=== PATIENT | female | born 1990 | race Caucasian/White ===

== ENCOUNTER → 2021-07-27 16:09 | Outpatient (CLI) | payer MEDICAID, SELFPAY ==
[2021-07-27 18:11] LABS: Absolute Lymphocyte Count 3.31 X10^3/uL (0.83-4.51); Absolute Neutrophil Count 7.3 X10^3/uL (2.0-7.7); Basophil# 0.08 X10^3/uL; Basophil% 0.7 % (0-1); Eosinophil# 0.11 X10^3/uL; Hemoglobin 13.7 g/dL (12.0-15.0); Lymphocyte # 3.31 X10^3/ul (0.83-4.51); Mean Corp Hgb Conc 33.4 g/dL (32-36); Mean Corpuscular Volume 89.7 fL (81-99); Mean Platelet Vol. 10.4 fl (6.2-12.0); Monocyte# 0.56 X10^3/uL; Monocyte% 4.9 % (0-10); NRBC Flagged by Analyzer 0 % (0-5); Platelet Count 328 K/mm3 (150-450); RBC Distribution Width CV 13.4 % (11.6-14.6); RBC Distribution Width SD 44.2 fl (35.1-43.9); Red Blood Count 4.57 M/mm3 (4.2-5.4); White Blood Count 11.4 K/mm3 (4.4-11.0)
[2021-07-27 18:53] LABS: ALB/GLOB Ratio 0.8 RATIO (0.9-2.4); AST(SGOT) 9 U/L (15-37); Alanine Aminotransfer ALT/SGPT 23 U/L (13-56); Albumin, Serum 3.4 g/dL (3.2-5.0); Alkaline Phosphatase 68 U/L (45-117); Anion Gap 9 (5-15); BUN 7 mg/dL (7-18); BUN/Creat Ratio 10.1 RATIO (10-20); Calcium,Total 8.7 mg/dL (8.5-10.1); Chloride 103 mmol/L (98-107); Cholesterol 212 mg/dL (200); EST Glomerular Filtration Rate 104 mL/min (>60); Est Glom Filt Rate - Afr Amer 126 mL/min (>60); Globulin 4.1 g/dL (2.2-4.2); Glucose 86 mg/dL (74-106); High Density Lipoprotein 57 mg/dL; Magnesium 2.2 mg/dL (1.6-2.6); Potassium 3.7 mmol/L (3.5-5.1); Protein, Total 7.5 g/dL (6.4-8.2); Sodium Level 137 mmol/L (136-145); Thyroid Stim Hormone (TSH) 1.66 uIU/mL (0.358-3.74); Triglycerides 152 mg/dL; Very Low Density Lipoprotein 30 mg/dL (5-40)
== END ==
PROVIDERS: PCP Family Medicine; Referring Provider Family Medicine; Visit Provider Family Medicine
DX: E66.9 Obesity, unspecified (principal); K52.9 Noninfective gastroenteritis and colitis, unspecified; Z68.35 Body mass index [BMI] 35.0-35.9, adult
CPT/HCPCS: 36415; 80053; 80061; 83735; 84443; 85025

== ENCOUNTER → 2021-10-26 | Outpatient (CLI) | payer MEDICAID, SELFPAY | END | disposition home or self-care (01) | LOC: LABSPEC 17:11 | PROVIDERS: PCP Family Medicine; Visit Provider Nurse Practitioner Family | DX: U07.1 COVID-19 (principal) | CPT/HCPCS: 87633; 87635; U0005; U0003 ==

== ENCOUNTER 2024-02-15 11:00 | Emergency (ER) | payer SELFPAY ==
[2024-02-15 11:02] VITALS: BP 141/101; PULSE 91; RESP 18; TEMP 35.6; O2SAT 95; BMI 34.9
--- NOTE | 2024-02-15 11:46 | EX.ED.DYSGE1 ---
HPI History of Present Illness Chief Complaint: General Illness Informant: patient Onset/Context/Timing Onset: Days Context: Gradual Onset Timing: Continuous Current Severity: Mild Maximum Severity: Mild Narrative Narrative: 33-year-old female no seen past medical history. On Sunday started with nausea vomiting diarrhea. The vomiting has stopped. And the diarrhea is improved. Patient is also had a cough with some intermittent wheezing. Subjective fever. She is also concerned because she is recently transitioning her insurance and it has not started yet since she wants to keep cost at a minimum if possible. Prior similar symptoms: Yes Recent Illness/Hospitalization: No PFSH PFSH Medical History no medical history no medical history Home Medications dicyclomine 10 mg capsule 20 mg (2 x 10 mg) PO TIDAC ##20 09/01/15 [Rx Last Taken Unknown] etonogestrel 0.12 mg-ethinyl estradiol 0.015 mg/24 hr vaginal ring (NuvaRing) 1 ea VG 09/01/15 [History Last Taken Unknown] ondansetron 4 mg disintegrating tablet 4 mg PO Q8H PRN PRN Nausea 09/01/15 [History Last Taken Unknown] prednisone 20 mg tablet 40 mg (2 x 20 mg) PO DAILY 7 days #14 tabs 02/15/24 [Rx Last Taken Unknown] Allergy/AdvReac Type Severity Reaction Status Date / Time Iodinated Contrast Media AdvReac Vomiting Verified 02/15/24 11:01 [Iodinated Contrast Media - IV Dye] Social History Smoking Status: Never smoker ROS ROS ED ROS Narrative Cough. Subjective fever and chills. Nausea vomiting diarrhea. Review of Systems ROS Unobtainable: Denies due to encephalopathy Constitutional Constitutional ED: Reports chills, fever(s) and subjective Eyes Eyes: Denies blurry vision ENT ENT ED: Reports ear pain and rhinorrhea; Denies sore throat Cardiovascular Cardiovascular: Denies chest pain or palpitations Respiratory/Chest Respiratory/Chest: Reports cough Gastrointestinal Gastrointestinal: Reports diarrhea, nausea and vomiting; Denies abdominal pain, constipation or melena Genitourinary Genitourinary ED: Denies dysuria or hematuria Musculoskeletal Musculoskeletal: Denies arthralgias or back pain Integumentary Denies abscess or Abrasions Neurologic Neurologic: Denies headache(s) Psychiatric Psychiatric: Denies anxiety Endocrine Endocrinology: Denies cold intolerance Hematologic/Lymphatic Hematologic/Lymphatic: Reports none Allergic/Immunologic Allergic/Immunologic ED: Denies mouth swelling, tongue swelling or urticaria EXAM Physical Exam Narrative Exam Narrative: Well-appearing 33-year-old female. Vital signs stable afebrile. Pulse ox 95% on room air no signs hypoxia. She does not look septic or toxic. She is no distress. She is well-hydrated. HEENT exam pupils round and react light. Mytrex membranes. Posterior pharynx normal. TMs normal. Neck nontender. No meningismus. No lymphadenopathy. Lungs clear to auscultation bilaterally. Currently is not wheezing. Heart regular rhythm no murmur. Abdomen soft nontender. Moving all 4 extremities. Nontender no edema. Neurologically she is awake and alert no focal motor deficits. Const Vital Signs: 02/15/24 11:02 Temperature 96.1 F L Temperature Source Temporal Pulse Rate 91 Respiratory Rate 18 Blood Pressure 141/101 H Blood Pressure Mean 114 Pulse Ox 95 Oxygen Delivery Method Room Air Positive well nourished and well developed; Negative for cachectic, contractures or unkempt General Appearance ED: well developed and NAD; Negative for unkempt, cachectic, contractures, cyanotic, diaphoretic or pallor Nutritional Appearance: Negative for cachectic HEENT Reports moist mucous membranes; Denies dry mucous membranes Negative for trauma or tenderness Mouth ED: No dry mucous membranes Mouth: No dry mucous membranes Eyes PERRL and EOMs intact bilaterally General Eye ED: Negative for pale conjunctiva or scleral icterus Neck no lymphadenopathy, supple and no JVD General: Negative for tenderness Lymph Lymphatic: Negative for other Chest Wall inspection of chest normal and palpation of chest normal Chest: Negative for other Resp normal respiratory effort and clear to auscultation bilaterally Effort and Inspection: Negative for retractions Auscultation: Negative for rales, rhonchi, wheezes or diminished lung sounds Cardio regular rate, regular rhythm, S1 normal heart sound, S2 normal heart sound and no murmurs GI normal to inspection, nondistended, normoactive bowel sounds, non-tender, non-distended and no masses Inspection: Negative for abdominal distention Auscultation: normoactive bowel sounds Palpation: soft; Negative for tender, guarding or rebound tenderness present Back/Spine no CVA tenderness General Back: Negative for CVA tenderness Cervical Spine: Negative for cervical spine tenderness Thoracic Spine / Upper Back: Negative for thoracic spinal tenderness or paraspinal muscle tenderness Lumbar Spine / Lower Back: Negative for lumbar spinal tenderness Extremity normal to inspection General Extremety ED: Negative for edema or tenderness General Extremity: Negative for edema Neuro oriented x3, CN's II-XII intact bilaterally and no sensory deficits noted Sensorium / Orientation: alert; Negative for orientation impaired, lethargic or stuporous Motor Exam: strength 5/5 throughout; Negative for general weakness or strength abnormal Psych mental status grossly normal Appearance: Negative for unkempt or other Attitude: No agitated Mood & Affect: Negative for depressed, anxious or tearful Skin no rashes or lesions noted, no wounds and skin turgor normal General Skin Exam: elasticity normal; Negative for jaundice or pallor Lesions: No lesion noted Rashes: No rashes noted Trauma: Negative for abrasion Wounds: Negative for wounds noted MDM MDM MDM Narrative Medical decision making narrative: Healthy 33-year-old female with URI viral syndrome. Fluids and rest. She is not actively vomiting that is resolved. She is not dehydrated does not need IV fluids. She does not need labs. She does not need a chest x-ray here no signs of pneumonia. Due to the intermittent wheezing she will be placed on prednisone. She is comfortable with the plan to be discharged home. She agrees and does not need viral testing. History & Record Review Discussion w/independent historian: Patient Discharge Plan Triage Chief Complaint: General Illness ED Provider: Salo Antonio Dx/Rx/DC Orders Clinical Impression: Nausea vomiting and diarrhea, Viral syndrome Instructions: ED Viral Syndrome (Adult), ED Vomiting (Adult) Prescriptions: New prednisone 20 mg tablet 40 mg PO DAILY 7 Days Qty: 14 0RF No Action etonogestrel-ethinyl estradiol [NuvaRing] 1 EACH ring 1 ea VG ondansetron 4 MG tablet 4 mg PO Q8H PRN PRN (Reason: Nausea) dicyclomine 10 MG capsule 20 mg PO TIDAC Qty: 20 0RF Rx Instructions: causes drowsiness Referrals: Vivek Mcgill MD [Med Staff - [employer]] - As Needed Activity Restrictions/Additional Instructions: Prednisone daily to stop the wheezing. Plenty of fluids and rest to rehydrate you. Tylenol and/or Motrin for body aches and fevers. Follow-up with local primary care physician as needed or return if you are feeling worse. Disposition Disposition: Home, Self Care
[2024-02-15 12:06] VITALS: BP 138/90; PULSE 88; RESP 16; TEMP 35.7; O2SAT 97
== END 2024-02-15 12:06 | disposition home or self-care (01) ==
PROVIDERS: Emergency Provider Emergency Medicine; Visit Provider Emergency Medicine
DX: R11.2 Nausea with vomiting, unspecified (principal); R19.7 Diarrhea, unspecified; B34.9 Viral infection, unspecified
CPT/HCPCS: 99282

== ENCOUNTER 2024-03-23 17:35 | Emergency (ER) | payer SELFPAY ==
[2024-03-23 17:36] VITALS: BP 159/101; PULSE 105; RESP 18; TEMP 36.8; O2SAT 97; BMI 35.2
[2024-03-23 17:40] VITALS: BP 159/101; PULSE 105; RESP 18; TEMP 36.2; O2SAT 97
--- NOTE | 2024-03-23 17:50 | RAD_ITS ---
EXAM: XR RIGHT RIBS AND AP CHEST, 3 OR MORE VIEWS CLINICAL INDICATION: cough, rib pain TECHNIQUE: Frontal and oblique views of the right ribs and frontal view of the chest. COMPARISON: No relevant prior studies available. FINDINGS: LUNGS AND PLEURAL SPACES: Unremarkable. No consolidation or edema. No pneumothorax. No effusion. HEART: Unremarkable. Cardiac silhouette not enlarged. MEDIASTINUM: Central airways and mediastinal contour are unremarkable. BONES/JOINTS: Unremarkable. No evidence of displaced rib fractures. RAD/Ribs Uni Min 3V w/PA Chest IMPRESSION: Negative chest and right ribs series. Electronically Signed: Ray Skinner MD at 18:14 EDT Reading Location ID and State: [facility] / [place] , Service support ,
--- NOTE | 2024-03-23 17:52 | EDS_ITS ---
HPI History of Present Illness Chief Complaint: Shortness of Breath Informant: patient Narrative Narrative: Increasing cough 2 days with right rib pain. States that her cough felt pain in her right rib. Took ibuprofen 2 hours ago. Subjective fevers. Sick contacts with someone with similar symptoms. No asthma or tobacco history. Reports wheezing over 2 days. She had leftover inhaler from previous use, has used the last 2 puffs. Pain with deep breaths. PFSH PFSH Home Medications ?Medication ?Instructions ?Recorded ?Last Taken ?Type dicyclomine 10 mg capsule 20 mg (2 x 10 mg) PO TIDAC ##20 09/01/15 Unknown Rx etonogestrel 0.12 mg-ethinyl 1 ea VG 09/01/15 Unknown History estradiol 0.015 mg/24 hr vaginal ring (NuvaRing) ondansetron 4 mg disintegrating 4 mg PO Q8H PRN PRN Nausea 09/01/15 Unknown History tablet prednisone 20 mg tablet 40 mg (2 x 20 mg) PO DAILY 7 days 02/15/24 Unknown Rx #14 tabs azithromycin 250 mg tablet 250 mg PO DAILY #4 TABLETS 03/23/24 Unknown Rx tramadol 50 mg tablet 50 mg PO Q6H PRN pain #12 tabs 03/23/24 Unknown Rx Allergy/AdvReac Type Severity Reaction Status Date / Time Iodinated Contrast Media AdvReac Vomiting Verified 03/23/24 17:40 (Iodinated Contrast Media - IV Dye) Social History Smoking Status: Never smoker ROS [facility] ED Constitutional Constitutional ED: Reports fever(s); Denies chills or sweats Eyes Eyes: Denies change in vision ENT ENT ED: Denies dysphagia or sore throat Cardiovascular Cardiovascular: Denies chest pain, leg edema, palpitations or racing heartbeat Respiratory/Chest Respiratory/Chest: Reports cough, dyspnea and other Details: Right rib pain, wheeze ; Denies dyspnea on exertion Gastrointestinal Gastrointestinal: Denies abdominal pain, diarrhea, nausea or vomiting Genitourinary Genitourinary ED: Denies dysuria, hematuria or urinary frequency Musculoskeletal Musculoskeletal: Denies back pain, extremity pain or neck pain Integumentary Denies rash or wounds Neurologic Neurologic: Denies headache(s), paresthesias or weakness EXAM Physical Exam Const Vital Signs: 03/23/24 17:36 05/26/24 17:40 03/23/24 17:53 Temperature 98.2 F 97.2 F L Temperature Source Temporal Temporal Pulse Rate 105 H 105 H Respiratory Rate 18 18 Respiratory Effort Normal Non-Labored Respiratory Depth Normal Respiratory Pattern Normal Blood Pressure 159/101 H 159/101 H Blood Pressure Mean 120 120 Pulse Ox 97 97 Oxygen Delivery Method Room Air Room Air Room Air 03/23/24 19:17 Temperature 97.1 F L Temperature Source Pulse Rate 95 Respiratory Rate 18 Respiratory Effort Respiratory Depth Respiratory Pattern Blood Pressure 143/81 H Blood Pressure Mean 101 Pulse Ox 96 Oxygen Delivery Method Positive well nourished and well developed General Appearance ED: well developed and NAD HEENT Reports moist mucous membranes normocephalic and atraumatic Eyes EOMs intact bilaterally and conjunctivae normal General Eye ED: Yes normal appearance of both eyes Neck no lymphadenopathy and supple General: Negative for tenderness Chest Wall Chest Narrative: Mild tenderness right lateral ribs no crepitus no ecchymosis, symmetric breath sounds. Chest: tenderness Resp Resp Narrative: Expiratory wheezing noted mild bilaterally. Effort and Inspection: symmetric chest movement; Negative for respiratory distress Cardio regular rhythm and no murmurs Rate: tachycardic Peripheral Pulses: pulses 2+ throughout GI normal to inspection, nondistended, normoactive bowel sounds and non-tender Palpation: Negative for guarding or rebound tenderness present Back/Spine no CVA tenderness and no thoracic nor lumbar tenderness Extremity normal to inspection General Extremety ED: Negative for edema or tenderness General Extremity: Negative for edema Neuro oriented x3 and no sensory deficits noted Sensorium / Orientation: awake and alert Skin no rashes or lesions noted and no wounds MDM MDM MDM Narrative Medical decision making narrative: Interventions / MDM: Differential diagnosis: Clinical pneumonia Diagnosis considered but do not suspect: Rib fracture however x-ray negative. My EKG interpretation: N/A Imaging independently reviewed and interpreted by myself: 5 view view x-ray chest and right ribs: No fracture or acute process. External documents reviewed: N/A Test considered but not ordered:N/A ED course: Patient declines any additional pain medicines at this time. Albuterol MDI provided, right rib series with PA chest ordered. Image studies negative. She is having productive cough with fevers. Discussed treatment for clinical pneumonia. Discussed no signs of fracture on x-ray however possibly of occult fracture. She started on Zithromax and tramadol in the ED. Discussed strict return precautions. All questions were answered. Re-evaluation: stable Disposition discussed with patient/family/significant other: Patient Case discussed with consulting clinician: N/A This note was generated with [employer] dictation software. It may contain incorrect words, spelling, and punctuation that were not noted in checking the note before signing. Radiography Diagnostic Testing: Clinical Impression(s) from Imaging Studies Ribs w/Chest X-Ray 03/23/24 17:50 IMPRESSION: Negative chest and right ribs series. Electronically Signed: Ray Skinner MD at 18:14 EDT , Discharge Plan Triage Chief Complaint: Shortness of Breath ED Provider: Josue Doyle Dx/Rx/DC Orders Clinical Impression: Pneumonia, Rib pain on right side, Cough Instructions: ED Pneumonia (Adult) Prescriptions: New azithromycin 250 mg tablet 250 mg PO DAILY Qty: 4 0RF tramadol 50 mg tablet 50 mg PO Q6H PRN (Reason: pain) Qty: 12 0RF No Action etonogestrel-ethinyl estradiol [NuvaRing] 1 EACH ring 1 ea VG ondansetron 4 MG tablet 4 mg PO Q8H PRN PRN (Reason: Nausea) dicyclomine 10 MG capsule 20 mg PO TIDAC Qty: 20 0RF Rx Instructions: causes drowsiness prednisone 20 mg tablet 40 mg PO DAILY 7 Days Qty: 14 0RF Primary Care Provider: Care Physician,No Primary Referrals: Vivek Mcgill MD [Med Staff - Dietary Internship] - 5-7 Days Care Physician,No Primary [Primary Care Provider] - Activity Restrictions/Additional Instructions: Your right ribs series with chest were negative. You are being treated for clinical pneumonia. Take and finish antibiotics prescribed inhaler as needed. Pain medicines as needed. Continue ibuprofen up to 600 mg every 6 hours. Print Language: Vietnamese Disposition Disposition: Home, Self Care Discharge Date/Time: 03/23/24 19:18
[2024-03-23] MEDS: Albuterol Sulfate 8 gm Inhaler (60 puffs) 2 PUFF INHALATION (18:05)
[2024-03-23] MEDS: traMADol 50 MG Tablet PO (19:13)
[2024-03-23] MEDS: Azithromycin 250 MG Tablet 500 MG PO (19:13)
[2024-03-23 19:17] VITALS: BP 143/81; PULSE 95; RESP 18; TEMP 36.2; O2SAT 96
== END 2024-03-23 19:18 | disposition home or self-care (01) ==
PROVIDERS: Emergency Provider Emergency Medicine; Visit Provider Emergency Medicine
DX: J18.9 Pneumonia, unspecified organism (principal); R07.81 Pleurodynia; R05.9 Cough, unspecified
CPT/HCPCS: 71101; 99283